=== PATIENT | female | born 1955 | race Caucasian/White ===

== ENCOUNTER → 2018-09-13 14:20 | Outpatient (CLI) | payer MEDICARE, SELFPAY ==
[2018-09-13 15:29] LABS: Add Manual Diff / Slide Review NO; Basophils Absolute Auto 0 /uL (0-100); Basophils Percent Auto 0.5 % (0-2); Eosinophils Absolute Auto 100 /uL (0-450); Hematocrit 38.2 % (36-46); Hemoglobin 12.9 g/dL (12.0-16.0); Lymphocytes Absolute Auto 1500 /uL (1100-4500); Lymphocytes Percent Auto 21.2 % (25-40); Mean Corpuscular HGB Conc 33.8 % (30-36); Mean Corpuscular Hemoglobin 30.5 PG (26-34); Mean Corpuscular Volume 90.2 fL (80-100); Monocytes Absolute Auto 400 /uL (0-900); Monocytes Percent Auto 6.2 % (3-14); Neutrophils Absolute Auto 5000 /uL (1500-7000); Neutrophils Percent Auto 70.1 % (50-75); Platelet Count 297 X10^3/uL (150-400); Red Blood Cell Count 4.24 X10^6/uL (4.0-5.2); White Blood Cell Count 7.1 X10^3/uL (4.5-11.0)
[2018-09-13 15:37] LABS: Alanine Aminotransferase 17 IU/L (9-52); Albumin 3.8 g/dL (3.5-5.0); Albumin Globulin Ratio 1.4 (1.0-2.8); Alkaline Phosphatase 89 U/L (38-126); Aspartate Aminotransferase 13 IU/L (14-36); Bilirubin Total 0.3 mg/dL (0.2-1.3); Blood Urea Nitrogen 19 mg/dL (7-17); Calcium 9.7 mg/dL (8.4-10.2); Carbon Dioxide 30 mmol/L (22-32); Chloride 104 mmol/L (98-107); Cholesterol 139 mg/dL (140-199); Globulin 2.8 g/dL (1.7-4.1); Glucose 96 mg/dL (80-110); HDL Cholesterol 69 mg/dL (40-60); HEMOLYSIS < 15 (0-50); LDL Cholesterol Calculated 53 mg/dL (<100); Magnesium 1.8 mg/dL (1.6-2.3); Potassium 4.2 mmol/L (3.4-5.1); Sodium 140 mmol/L (137-145); Total Protein 6.6 g/dL (6.3-8.2); Triglycerides 86 mg/dL (35-150)
[2018-09-13 16:06] LABS: Thyroid Stimulating Hormone 0.74 uIU/mL (0.47-4.68)
== END ==
PROVIDERS: Visit Provider Nurse Practitioner
DX: I48.91 Unspecified atrial fibrillation (principal)
CPT/HCPCS: 36415; 80053; 80061; 83735; 84443; 85025

== ENCOUNTER → 2018-10-04 09:04 | Outpatient (CLI) | payer MEDICARE, SELFPAY ==
--- NOTE | 2018-10-04 09:05 | DI.NM.S_ITS ---
PROCEDURE: NM WINSTON PERF SPECT REST & STR Rest and exercise myocardial perfusion SPECT with gated imaging and ejection fraction RADIOPHARMACEUTICAL: 26.6 mCi Tc-99m sestamibi IV at rest and 24.8 mCi Tc-99m sestamibi IV at peak exercise. A [id number] was performed. INDICATIONS: new onset afib COMPARISON: None. CARDIAC STRESS: A standard Richy treadmill exercise tolerance test was performed by the patient under the supervision of an attending staff. The patient exercised for 3 minutes and 4 seconds; functional aerobic impairment (KAMALJIT) is 35 %. Hemodynamic data: There is normal blood pressure and heart rate response to exercise stress. Patient achieved 120% of maximum predicted heart rate at peak exercise. Symptoms: Patient denied chest pain during exercise. EKG: Patient was in atrial fibrillation with rapid ventricular response before starting the treadmill study. her heart rate was 124 bpm and quickly increased to 160 bpm. The EKG at peak stress cannot be interpreted due to significant baseline artifact but immediate post exercise trasing is negative for presence of significant ST/T changes. FINDINGS: Raw data: There is good myocardial labeling by radiotracer. No significant motion artifacts. There is breast and subdiaphragmatic attenuation. Tpnc-zr-hnvqo ratio is 0.26 (normal is less than 0.38 for sestamibi tracer, and less than 0.50 for thallium tracer). Left ventricle function: Gated images were performed but are of poor quality due to rapid atrial fibrillation and will not be reported given unreliable data. Myocardial perfusion: The perfusion study showed a moderate-size, moderately severe perfusion defect in the apical, apical inferior, apical lateral, mid inferolateral wall on supine stress images and to a less extent on rest supine images that completely resolve on prone imaging, consistent with breast attenuation artifact. Otherwise there is normal distribution of activity in the left ventricular myocardium with no other fixed or reversible perfusion defects. IMPRESSION: Probably normal perfusion study given the moderate-size defect resolves on prone imaging. The gated images were not reliable and wall motion and LVEF cannot be assessed. Dictated by: Mane Haro M.D. on 10/05/2018 at 13:08 Approved by: Mane Haro M.D. on 10/05/2018 at 13:21
--- NOTE | 2018-10-04 10:28 | P.PCN_ITS ---
Cardiac Stress Test Report Referral & Results Date Patient Seen: 10/04/18 Requesting provider: Haritha Womack Indication: Atrial fibrillation Rest ECG: Atrial fibrillation with rapid ventricular response (patient held all of her meds including her diltiazem and her metoprolol prior to the test, despite the fact she was told only to hold her metoprolol) Procedure Note: Today following both written and verbal informed consent the patient was exercised according to a standard Richy protocol patient went for a total of 3 minutes 4 seconds achieving a maximum heart rate of 189 maximum systolic blood pressure of 470. This is approximately 4.6 METS. Exercise was terminated at this point because of targets are meant. Patient was also given Cardiolite through a previously started Hep-Lock IV by the hazardous waste material technician approximately 1 minute prior to the cessation of exercise. No ST-T segment changes Functional aerobic impairment rated about 35% in the sedentary scale Impression: Atrial fibrillation with rapid ventricular response at rest Patient quickly tachycardic of course with activity No evidence of ischemia based on ECG criteria Limited exercise capacity Please see perfusion imaging report as well Please note: Actual ECG tracings can be found in the PACS system.
== END ==
PROVIDERS: PCP Nurse Practitioner; Visit Provider Nurse Practitioner
DX: I48.91 Unspecified atrial fibrillation (principal); R06.02 Shortness of breath
CPT/HCPCS: 78452; 93016; 93017; 93018; A9502

== ENCOUNTER → 2018-10-05 08:57 | Outpatient (CLI) | payer MEDICARE, SELFPAY ==
--- NOTE | 2018-10-05 08:59 | DI.ECHO.S_ITS ---
[facility] +---------+ : : [address] [place] : : : : [id number] : : : : Phone: [phone]+ Echocardiogram Report + + :Name: ELSI SALMON Study Date: 10/05/2018 Height: 63 in : :[facility] Exam Location: [facility] Weight: 191 lb : : Gender: Female BSA: 1.9 m2 : :: 1955 Age: 62 yrs BP: 118/90 mmHg: :Reason For Study: AFIB : : Performed By: Reji Scanlon : :Referring: FARIBA JUAREZ : + + Interpretation Summary Afib with RVR. Heart rate is 120-150 bpm. Normal LV size and wall thickness. There is global hypokinesis. EF is 30-35%. Mild biatrial enlargement. Otherwise normal chamber sizes. Aortic sclerosis with mild associated aortic regurgitation. Mitral valve leaflets are normal; there is moderate-severe central mitral regurgitation. There is moderate-severe tricuspid regurgitation. Estimated PA systolic pressure is 36 mm hg assuming RA pressure of 3 mm Hg. No prior study available for comparison. Procedure: A two-dimensional transthoracic echocardiogram with color flow and Doppler was performed. The study quality was technically difficult. There is no prior echocardiogram noted for this patient. A contrast injection of Definity was performed to improve assessment of LV function. The patient was in atrial fibrillation with rapid ventricular response during the exam with a heart rate exceeding 100 bpm. The patient had a heart rate of 96-159 beats per minute. Left Ventricle: The left ventricle is normal in size. There is normal left ventricular wall thickness. The ejection fraction is estimated to be 30-35%. Right Ventricle: The right ventricle is normal in size and function. Atria: Both atria are mildly dilated. The interatrial septum is intact with no evidence for an atrial septal defect. Mitral Valve: The mitral valve leaflets appear to open well. There is moderate to severe mitral regurgitation. Aortic Valve: The aortic valve is trileaflet. The aortic valve opens well. There is trace aortic regurgitation. Tricuspid Valve: The tricuspid valve is normal in structure and function. There is moderate to severe tricuspid regurgitation. The right ventricular systolic pressure is estimated to be at least 36 mmHg based on an estimated right atrial pressure of 3 mm Hg. Pulmonic Valve: The pulmonic valve is not well visualized. There is trace pulmonic regurgitation. Great Vessels: The aortic root is normal size. The dimensions of the ascending aorta are normal. The pulmonary artery is normal size. The IVC is of normal diameter and collapses greater than 50% with a sniff. This suggests a low right atrial pressure of 3 mm Hg. Pericardium/ Pleura There is no pericardial effusion. There is no pleural effusion. MMode/2D Measurements & Calculations LVIDd: 5.2 cm LVOT diam: 1.8 cm LVIDs: 4.0 cm Ao root diam: 2.8 cm FS: 23.0 % Aortic Jxn: 2.1 cm EPSS: 1.5 cm asc Aorta Diam: 3.0 cm IVSd: 0.85 cm Ao Arch Diam (Prox Trans): 2.4 cm LVPWd: 0.96 cm LV booker. diameter/BSA (cm/m^2): 2.7 LV sys. diameter/BSA (cm/m^2): 2.1 LA dimension: 3.7 cm RA long axis: 5.6 cm LA A2 area: 22.4 cm2 RA area: 20.8 cm2 LA A4 area: 23.0 cm2 RA vol: 65.9 ml LA length (vol): 5.9 cm RA : 34.7 ml/m2 LA vol: 73.7 ml IVC diam: 1.6 cm LA vol index: 38.9 ml/m2 Doppler Measurements & Calculations Ao V2 max: 139.1 cm/sec LVOT Max Chase: 80.9 cm/sec Ao V2 mean: 99.6 cm/sec LV V1 max P.7 mmHg Ao max P.0 mmHg LV V1 VTI: 14.3 cm Ao mean P.4 mmHg SIMONA(I,D): 1.4 cm2 Ao V2 VTI: 26.0 cm SIMONA(V,D): 1.5 cm2 sev ratio: 0.55 SIMONA indexed to BSA (cm^2/m^2): 0.76 MV E max chase: 101.3 cm/sec TR max chase: 288.1 cm/sec MV A max chase: 1.8 cm/sec TR max P.2 mmHg MV E/A: 57.2 PA V2 max: 79.5 cm/sec Med Peak E' Chase: 6.1 cm/sec PA V2 mean: 58.8 cm/sec E/E' med: 16.5 PA mean P.5 mmHg Lat Peak E' Chase: 6.5 cm/sec PA pr(Accel): 49.1 mmHg E/E' lat: 15.5 PA Accel Time: 0.06 sec E/e' average: 16.0 MV dec time: 0.14 sec SV(LVOT): 37.4 ml Electronically signed by: Saloni Forman M.D. on Reading Physician:10/05/2018 03:55 PM
== END ==
PROVIDERS: PCP Nurse Practitioner; Visit Provider Nurse Practitioner
DX: I08.1 Rheumatic disorders of both mitral and tricuspid valves (principal); I48.91 Unspecified atrial fibrillation; R06.02 Shortness of breath
CPT/HCPCS: 93306; Q9957

== ENCOUNTER → 2018-11-07 13:59 | Outpatient (CLI) | payer MEDICARE, SELFPAY ==
--- NOTE | 2018-11-07 | DI.RAD.S_ITS ---
PROCEDURE: XR CHEST 2V INDICATIONS: AFIB TECHNIQUE: 2 views of the chest were acquired. COMPARISON: None. FINDINGS: Surgical changes and devices: None. Lungs and pleura: Lungs are clear. No pleural effusions or pneumothorax. Mediastinum: Mediastinal contours are normal. Heart size is enlarged. Bones and chest wall: No suspicious bony abnormalities. Soft tissues appear unremarkable. IMPRESSION: Cardiomegaly. No acute pulmonary pathology. Dictated by: Gualberto Gage M.D. on 11/07/2018 at 15:57 Approved by: Gualberto Gage M.D. on 11/07/2018 at 15:57
[2018-11-07 15:13] LABS: Alanine Aminotransferase 29 IU/L (9-52); Albumin Globulin Ratio 1.5 (1.0-2.8); Alkaline Phosphatase 77 U/L (38-126); Aspartate Aminotransferase 16 IU/L (14-36); Bilirubin Total 0.8 mg/dL (0.2-1.3); Blood Urea Nitrogen 20 mg/dL (7-17); Calcium 9.9 mg/dL (8.4-10.2); Carbon Dioxide 26 mmol/L (22-32); Chloride 106 mmol/L (98-107); Cholesterol 191 mg/dL (140-199); Estimated Glomerular Filt Rate > 60.0 mL/min (>60); Globulin 2.7 g/dL (1.7-4.1); Glucose 112 mg/dL (80-110); HDL Cholesterol 59 mg/dL (40-60); HEMOLYSIS < 15 (0-50); LDL Cholesterol Calculated 111 mg/dL (<100); Sodium 141 mmol/L (137-145); Total Protein 6.7 g/dL (6.3-8.2); Triglycerides 106 mg/dL (35-150)
== END ==
PROVIDERS: Family Provider Nurse Practitioner; PCP Nurse Practitioner; Visit Provider Internal Medicine Cardiovascular Disease
DX: I48.91 Unspecified atrial fibrillation (principal); I51.7 Cardiomegaly; E78.5 Hyperlipidemia, unspecified; Z79.899 Other long term (current) drug therapy
CPT/HCPCS: 36415; 71046; 80053; 80061

== ENCOUNTER → 2018-11-14 10:21 | Outpatient (CLI) | payer MEDICARE, SELFPAY ==
[2018-11-14 11:17] LABS: Add Manual Diff / Slide Review NO; Basophils Absolute Auto 0 /uL (0-100); Basophils Percent Auto 0.7 % (0-2); Eosinophils Absolute Auto 100 /uL (0-450); Eosinophils Percent Auto 1.9 % (2-4); Hematocrit 40.4 % (36-46); Hemoglobin 13.7 g/dL (12.0-16.0); Lymphocytes Absolute Auto 1400 /uL (1100-4500); Lymphocytes Percent Auto 21.6 % (25-40); Mean Corpuscular Hemoglobin 30.9 PG (26-34); Monocytes Absolute Auto 300 /uL (0-900); Monocytes Percent Auto 4.4 % (3-14); Neutrophils Absolute Auto 4700 /uL (1500-7000); Neutrophils Percent Auto 71.4 % (50-75); Platelet Count 321 X10^3/uL (150-400); Red Blood Cell Count 4.44 X10^6/uL (4.0-5.2); White Blood Cell Count 6.6 X10^3/uL (4.5-11.0)
[2018-11-14 12:09] LABS: BUN Creatinine Ratio 32.9 (6-22); Blood Urea Nitrogen 23 mg/dL (7-17); Calcium 9.6 mg/dL (8.4-10.2); Carbon Dioxide 26 mmol/L (22-32); Chloride 104 mmol/L (98-107); Estimated Glomerular Filt Rate > 60.0 mL/min (>60); Glucose 106 mg/dL (80-110); HEMOLYSIS < 15 (0-50); Potassium 4.4 mmol/L (3.4-5.1); Sodium 138 mmol/L (137-145)
[2018-11-14 13:14] LABS: Prothrombin Time 176.7 SECONDS (10.1-12.7)
[2018-11-14 13:16] LABS: INR 14.5 (0.9-1.3)
== END ==
PROVIDERS: Family Provider Nurse Practitioner; PCP Nurse Practitioner; Visit Provider Internal Medicine Cardiovascular Disease
DX: I48.91 Unspecified atrial fibrillation (principal)
CPT/HCPCS: 36415; 80048; 85025; 85610

== ENCOUNTER → 2023-07-13 12:11 | Outpatient (CLI) | payer MEDICARE, SELFPAY ==
[2023-07-13 13:50] LABS: Add Manual Diff / Slide Review NO; Basophils Absolute Auto 0 /uL (0-100); Basophils Percent Auto 1.9 % (0-2); Eosinophils Absolute Auto 0 /uL (0-450); Eosinophils Percent Auto 1.5 % (2-4); Hematocrit 33.8 % (36-46); Hemoglobin 11.6 g/dL (12.0-16.0); Lymphocytes Absolute Auto 400 /uL (1100-4500); Lymphocytes Percent Auto 16.1 % (25-40); Mean Corpuscular HGB Conc 34.4 % (30-36); Mean Corpuscular Hemoglobin 36.2 PG (26-34); Mean Corpuscular Volume 105.2 fL (80-100); Monocytes Absolute Auto 100 /uL (0-900); Monocytes Percent Auto 3.7 % (3-14); Neutrophils Absolute Auto 1800 /uL (1500-7000); Neutrophils Percent Auto 76.8 % (50-75); Platelet Count 243 X10^3/uL (150-400); Red Blood Cell Count 3.21 X10^6/uL (4.0-5.2); White Blood Cell Count 2.3 X10^3/uL (4.5-11.0)
[2023-07-13 14:20] LABS: Alanine Aminotransferase 10 IU/L (<35); Albumin 4.1 g/dL (3.5-5.0); Albumin Globulin Ratio 1.4 (1.0-2.8); Alkaline Phosphatase 79 U/L (38-126); Aspartate Aminotransferase 17 IU/L (14-36); BUN Creatinine Ratio 19.8 (6-22); Bilirubin Total 0.6 mg/dL (0.2-1.3); Blood Urea Nitrogen 18 mg/dL (7-17); Calcium 10.1 mg/dL (8.4-10.2); Carbon Dioxide 31 mmol/L (22-32); Chloride 106 mmol/L (98-107); Estimated Glomerular Filt Rate > 60 mL/min (>60); Glucose 79 mg/dL (80-110); HEMOLYSIS < 15 (0-50); Potassium 4.2 mmol/L (3.4-5.1); Sodium 141 mmol/L (137-145); Total Protein 7.1 g/dL (6.3-8.2)
[2023-07-14 08:10] LABS: CA 15-3 13.6 U/mL (0.0-25.0); Cancer Antigen 27.29 20.9 U/mL (0.0-38.6)
== END ==
PROVIDERS: Family Provider Nurse Practitioner; PCP Nurse Practitioner; Referring Provider Internal Medicine; Visit Provider Internal Medicine
DX: C50.212 Malignant neoplasm of upper-inner quadrant of left female breast (principal); Z17.0 Estrogen receptor positive status [ER+]
CPT/HCPCS: 36415; 80053; 85025; 86300